=== PATIENT | male | born 1995 | race Caucasian/White ===

== ENCOUNTER 2017-05-09 08:12 | Day surgery (SDC) | payer OTHER ==
[~2017-05-09] VITALS: Ht 180.3 cm; Wt 83.9 kg
[2017-05-09 10:00] VITALS: BP 118/72; Ht 180.3 cm; Wt 83.9 kg
--- NOTE | 2017-05-09 11:36 | NUR ---
IV SITED IN LEFT WRIST BY QAMAR MELARA CRNA ON GOOD BLOOD 22G. RETURN OBTAINED, FLUSH AN PATENT.
--- NOTE | 2017-05-09 14:40 | NUR ---
1440 DISCHARGE INSTRUCTIONS COMPLETE. PT HAS NO QUESTIONS OR CONCERNS AT THIS TIME. PT ESCORTED OUT BY VOLUNTEER.
--- NOTE | 2017-06-11 13:13 | OP ---
PATIENT NAME: DIONTE RUBI MEDICAL RECORD: [id number] :97 LOCATION[facility] ADMISSION DATE: SURGEON: ELMO PACKER MD DATE OF OPERATION: 05/09/2017 PREOPERATIVE DIAGNOSES: Chronic pharyngitis and nasal obstruction and turbinate hypertrophy. POSTOPERATIVE DIAGNOSES: Chronic pharyngitis and nasal obstruction and turbinate hypertrophy. PROCEDURE: Tonsillectomy and adenoidectomy and bilateral outfracture inferior turbinates. SURGEON: Elmo Packer MD ANESTHESIA: General orotracheal. BLOOD LOSS: Less than 5 cc. SPECIMENS: Right and left tonsil. COMPLICATIONS: None. DISPOSITION: Recovery stable. DESCRIPTION OF PROCEDURE: He was brought to the operating room and placed in supine position, sedated and intubated by anesthesia. The eyes were taped. The table was turned to 90 degrees. A head drape was applied and he was positioned for tonsillectomy. Some Afrin was placed in both sides of the nose. Smith-Lowell mouth gag was carefully inserted and elevated on a towel on his chest. The palate was examined and palpated. It was normal. A red rubber catheter was placed through right side of the nose into the pharynx and grasped with tonsil clamp to retract the soft palate. Using a mirror, the nasopharynx was examined. Suction cautery on a setting of 35 was used to ablate and suction the adenoid pad with no significant bleeding. The choanae and eustachian tube orifices were normal bilaterally. The red rubber catheter was let down and removed. The right tonsil was grasped at the superior pole with a straight Allis clamp. Spatula tip cautery on a setting of 9 was used to dissect out the tonsil along its capsule, preserving the anterior and posterior tonsillar pillars. The left tonsil was removed in the same fashion. Then, both sides of the nose were irrigated with saline. The pharynx was suctioned. Tonsillar fossae were agitated. Suction cautery on a setting of 20 was used to control minimal oozing. With the field clean and dry, the Smith-Lowell mouth gag was let down and removed. The nose was examined, Boies elevator was used to outfracture both inferior turbinates. Then, using a headlight and nasal speculum, the nose was examined. Suction cautery on a setting of 20 was used to cauterize a little bit of polypoid changes in the inferior turbinates. The nasal cavity was normal in appearance, no masses, polyps, or mucosal lesion. No sign of infection. Nasopharynx was suctioned. He was awakened, extubated, and transported to recovery in good condition. No complications. TRANSINT:[id number] Voice Confirmation ID: [id number] DOCUMENT ID: [id number] OPERATIVE REPORT [id number] DIONTE RUBI, ELMO GALEANA at 1313 CC: [id number] DICTATION DATE: 05/09/17 1324 MANAGER WIND: 05/09/17 1503 [facility] 05/09/17 [address] [id number] [place] [address]
--- NOTE | 2017-06-11 13:13 | HP ---
PATIENT: DIONTE RUBI MEDICAL RECORD: [id number] ACCOUNT: [id number] [facility] : 89 ADMISSION DATE: 05/09/17 HISTORY AND PHYSICAL EXAMINATION HISTORY OF PRESENT ILLNESS: Dionte is 21 years old. He is having problems with recurrent pharyngitis for years as well as problems with nasal obstruction refractory to medical management. He is being admitted for tonsillectomy and adenoidectomy and outfracture of the inferior turbinates. PAST SURGICAL HISTORY: Includes wisdom teeth in 2016. PAST MEDICAL HISTORY: Otherwise negative. CURRENT MEDICATIONS: None. ALLERGIES: No known drug allergies. PHYSICAL EXAMINATION: GENERAL: He is healthy-appearing, developmentally normal. FACE: Normal, symmetric, no lesions. EYES: Sclerae and conjunctivae are normal. EARS: Canals and TMs are normal. NOSE: Large inferior turbinates. ORAL CAVITY AND OROPHARYNX: Normal. He has 4+ kissing tonsils. Normal palate. NECK: No masses, adenopathy. CHEST: Clear. CARDIOVASCULAR: Regular rate and rhythm, no murmur. EXTREMITIES: Normal. IMPRESSION: Obstructive adenotonsillar hypertrophy, chronic pharyngitis, turbinate hypertrophy, and nasal obstruction. PLAN: Tonsillectomy and adenoidectomy and bilateral outfracture of the turbinates. TRANSINT:[id number] Voice Confirmation ID: [id number] DOCUMENT ID: [id number] ELMO MARTINEZ MD at 1313 CC: [id number] DICTATION DATE: 05/08/17 1018 HR RECRUITER: 05/08/17 1100 [facility] 05/09/17 [place] [id number]
== END 2017-05-09 14:41 | disposition home or self-care (01) ==
LOC: D.OPS 08:12 → D.PAN 08:30 → D.OPS 10:15
DX: J35.01 Chronic tonsillitis (principal); J35.3 Hypertrophy of tonsils with hypertrophy of adenoids; J31.2 Chronic pharyngitis; J34.3 Hypertrophy of nasal turbinates; Z01.812 Encounter for preprocedural laboratory examination